=== PATIENT | female | born 1945 | race Caucasian/White ===

== ENCOUNTER → 2020-11-27 | Outpatient (CLI) | payer OTHER, MEDICARE ==
[~2020-11-27] MED LIST: ASA81BEC PO; CIMZIA400 MG/2 M SUBQ; FOLIC ACID1 MG PO; LEVOTHYROXINE150 MCG PO; LISINOPRIL-HCT1 EACH PO; METHOTREXATE 22.5 M1 PO; PROAIR HFA8.5 GM INH; TART CHERRY CA1 EACH PO; TRAMADOL 50 MG50 MG PO; VOLTAREN ARTHRI20 GM TOP
[2020-11-27 10:55] LABS: URINE BILIRUBIN NEGATIVE (Negative); URINE BLOOD NEGATIVE (Negative); URINE CLARITY CLEAR; URINE COLOR YELLOW; URINE GLUCOSE-RANDOM* NEGATIVE (Negative); URINE KETONES NEGATIVE (Negative); URINE NITRITE-REFLEX NEGATIVE (Negative); URINE PROTEIN (DIPSTICK) NEGATIVE (Negative); URINE UROBILINOGEN 0.2 E.U./dl (0.2-1.0)
[2020-11-27 10:57] LABS: HEMATOCRIT 32.3 % (37.0-47.0); HEMOGLOBIN 11.1 gm/dL (12.0-15.0); MCH 30.5 pg (26.0-34.0); MCHC 34.2 g/dL (28.0-37.0); MCV 89.2 fL (80.0-100.0); RBC 3.62 mil/uL (4.20-5.00); RDW 14.1 % (10.5-14.5); WBC 5.7 thou/uL (4.0-11.0)
[2020-11-27 10:59] LABS: URINE LEUKOCYTES-REFLEX 1+ (Negative)
[2020-11-27 11:10] LABS: CALCIUM 8.7 mg/dL (8.5-10.1); CREATININE 1.7 mg/dL (0.6-1.0); POTASSIUM 4.5 mmol/L (3.5-5.1)
[2020-11-27 11:12] LABS: INR 0.91
[2020-11-27 11:24] LABS: CASTS None Seen /LPF (None Seen); CRYSTALS None Seen /LPF (None Seen); SQUAMOUS 0-3 Few /LPF (0-3)
[2020-11-27 11:26] LABS: BACTERIA-REFLEX 1-9 Few /HPF (None Seen); RENAL EPITHELIAL CELLS 0-3 Few /LPF (None Seen); URINE RBC None Seen /HPF (NONE SEEN); URINE WBC-REFLEX 0-5 Rare /HPF (0-5)
--- NOTE | 2020-11-27 15:36 | EKG ---
[address] [address] ELECTROCARDIOGRAM REPORT Name: BOBBI VIDAL Room #: [facility]#: [id number] Admission: 11/27/20 Attend Phys: Mateus Bolden MD Discharge: Date of : 49 Report #: [id number] [facility] Test Date: 2020-11-27 Test Time: 10:49:27 Pat Name: BOBBI VIDAL Department: Room: Gender: F Payroll Benefits Clerk: TRE : 1945 Requested By: Mateus Bolden Order Number: [id number] : Deion Gandara Measurements Intervals [place] Rate: 70 P: 47 [place]: 145 QRS: -22 QRSD: 94 T: 13 QT: 399 QTc: 431 Interpretive Statements Sinus rhythm Borderline left axis deviation No previous ECG available for comparison Electronically Signed On 11-27-2020 15:36:44 CDT by Deion Gandara [email or web address] <ELECTRONICALLY SIGNED> By: Deion Gandara MD, [facility] 11/27/20 1536 1049 1049 Deion Gandara MD, FACC /EPI
== END ==
LOC: PAC 10:16
PROVIDERS: ATTEND Orthopaedic Surgery
DX: Z01.810 Encounter for preprocedural cardiovascular examination (principal); Z01.812 Encounter for preprocedural laboratory examination; M17.11 Unilateral primary osteoarthritis, right knee

== ENCOUNTER 2020-12-02 08:11 | Observation (INO) | payer OTHER, MEDICARE ==
[~2020-12-02] VITALS: Ht 152.4 cm; Wt 74.8 kg
--- NOTE | ~2020-12-02 | O ---
[facility] [place] [address] OPERATIVE REPORT Name: BOBBI VIDAL Room #: 441-P [facility] MKanwal#: [id number] Admission: 12/02/20 Attend Phys: Mateus Bolden MD Discharge: Date of : 49 Report #: [id number] THIS REPORT FOR: cc: Physician not on staff Physician not on staff Mateus Bolden MD ~ DOC #: [id number] Mateus Bolden MD DATE OF SERVICE: 12/02/2020 PREOPERATIVE DIAGNOSIS: Right knee osteoarthritis. POSTOPERATIVE DIAGNOSIS: Right knee osteoarthritis. PROCEDURE: Right total knee arthroplasty using Navio robotic assistance. SURGEON: Mateus Bolden MD. GERM DRIER: Sagrario Crespo PA-C. INDICATION FOR GERM DRIER: Throughout the case, extensive retraction and manipulation of the knee was required. This is supported by my hr assistant. ANESTHESIA: LMA with adductor canal block. IMPLANTS: A [employer] size 3 Journey II BCS cobalt chrome femur, a size 2 tibia, size 11 constrained polyethylene and size 29 patella. TOURNIQUET TIME: 48 minutes. ESTIMATED BLOOD LOSS: 25 mL COMPLICATIONS: None. SPECIMENS: None. CONDITION UPON LEAVING THE OR: Stable. INDICATIONS FOR PROCEDURE: The patient is a 75-year-old female with right knee osteoarthritis. She had failed conservative measures for this and after discussion with her, she elected for right total knee arthroplasty. DESCRIPTION OF PROCEDURE: Risks, benefits, alternatives, complications were discussed in detail with the patient including but not limited to risk of anesthesia, risk of damage to nerves, arteries, blood vessels, risk for infection, bleeding, risk for continued knee pain, need for reoperation. [facility] [address] [place] [address] OPERATIVE REPORT Name: BOBBI VIDAL Room #: 441-P [facility] Carlene Ortiz#: [id number] Admission: 12/02/20 Attend Phys: Mateus Bolden MD Discharge: Date of : 49 Report #: [id number] Informed consent was obtained from the patient. The right knee was appropriately marked in the preoperative holding area. IV Ancef was given for preoperative antibiotics. She was brought to the operating room and placed in supine position on the operating room table. LMA anesthesia was induced without complication. Tourniquet was placed on the right thigh. Right lower extremity was prepped and draped in normal sterile fashion. Timeout was performed properly identifying the patient and procedure as well as the instrumentation and implants. All in the operating room in agreement. Right lower extremity was exsanguinated, tourniquet was inflated. Tourniquet time was 48 minutes. Standard midline approach to knee was made with 10 blade through the skin. Dissection was taken down sharply to the fascia and deep flaps were developed medially and laterally. Fresh 10 blade was used to make a medial parapatellar arthrotomy and the knee was inspected. There were severe tricompartment osteoarthritis. ACL and PCL were removed sharply. Reference pins were placed in the femur and the tibia. The knee was then digitally mapped using the DoctorC robotic system. Intraoperative plan was made and we sized the size 3 femur, the size 2 tibia and a 10 spacer. After acceptance of the intraoperative plan, the distal femoral cut was made with Navio bur. Distal femoral cutting block was pinned in place and chamfer cuts were made. Attention was turned to the tibia. Remainder of the menisci removed with Bovie cautery. Tibial resection guide was pinned in place using Navio for placement and tibial resection was made. Flexion and extension gaps were checked and found to have good balance laterally in flexion and extension. She was tight medially and after removal of the medial tibial osteophyte, a limited medial release was performed using the pie crust technique. This balanced the knee well. Tibia sized, found to be a size 2. Size 2 tibial trial was placed, pinned and punched. Size 3 femoral trial was placed and the box cut was made. This was then trialed with a size 10 and then the size 11 polyethylene and 11 polyethylene demonstrated good balance medially throughout range of motion. She did have some laxity laterally and deep flexion. It was felt we can make up for this with a constrained implant, 9 mm of bone was resected from the posterior surface of the patella and a size 29 patellar trial button was placed, knee was taken through range of motion, found to be stable, found to have good patellar tracking. Trial components were removed. Bone ends were thoroughly irrigated with normal saline. Final size 2, tibia size 3 Journey II BCS cobalt chrome femur and a size 29 patella were cemented in place using standard cementation techniques. While the cement cured, a periarticular injection consisting of morphine, ropivacaine, epinephrine, Toradol was placed around the knee joint capsule. After the cement cured, the tourniquet was deflated. Hemostasis was obtained with Bovie cautery. A final size 11 constrained polyethylene was placed. A gram of vancomycin was placed deep in the joint. The fascia was closed with 0 Vicryl. Skin was closed with 2-0 Vicryl, skin staple and a ALYCIA dressing was applied. The patient tolerated this procedure well and went to recovery room under care of anesthesia postoperatively. [address] [address] OPERATIVE REPORT Name: BOBBI VIDAL Room #: 441-P [facility] Carlene Ortiz#: [id number] Admission: 12/02/20 Attend Phys: Mateus Bolden MD Discharge: Date of : 49 Report #: [id number] Mateus Bolden MD SMA/BRIAN By: [id number] [id number] Mateus Bolden MD /nt
[2020-12-02 13:39] VITALS: BP 129/58
[2020-12-02 16:38] VITALS: BP 139/66
[2020-12-02 19:58] VITALS: BP 118/62
--- NOTE | 2020-12-03 03:01 | NUR ---
ASSUMED CARE OF PT AT 1900. PT IS A/O X4 AND IS UP WITH ASSISTANCE USING WALKER AND GB TO THE BR. PLEASANT AND COOPERATIVE WITH CARES. VSS AFEBRILE. C/O PAIN TO RIGHT KNEE. PRN PAIN MEDICATION GIVEN DIRECTED. DRSG IS C/D/I. POLAR PACK ICE CHANGED AND IN PLACE. SCD'S, KNEE HIGH JOANNA HOSE AND FALL PRECAUTIONS IN PLACE, CALL LIGHT IS WITHIN REACH. PT HAS CALLED OUT APPROPRIATELY FOR ASSISTANCE.
[2020-12-03 08:15] VITALS: BP 112/62
--- NOTE | 2020-12-03 09:31 | NUR ---
ASSUMED PT CARE THIS AM. PT IS ALERT & ORIENTED X4. PT HAS IV SITE ON R FA. PT IS UP WITH ASSIST X 1 WITH GAITBELT AND WALKER. PT HAS ALYCIA DESSING, KNEE HIGH JOANNA HOSES BILATERAL, POLAR PACK. PT IS ON ROOM AIR. PT HAD SURGERY YESTERDAY. PT WAS WORKING WITH PHYSICAL THERAPY THIS AM AND DID WELL. NO C/O NAUSEA AND VOMITING NOTED. PT TOLERATED DIET AND MEDICATION WELL THIS AM. PT ON THE BED, BED ON THE LOWEST POSITION, SIDE RAILS UP, CALL LIGHT WITHIN REACH. WILL CONTINUE TO MONITOR PT. FOLLOW POC.
[2020-12-03 10:21] VITALS: BP 112/62
[2020-12-03 13:50] VITALS: BP 112/62
--- NOTE | 2020-12-03 14:07 | NUR ---
ASSESMENT: CM REVIEWED CHART AND MET WITH PATIENT. PT IS ALERT AND ORIENTED X4. PT IS S/P CERVIAL FUSION. 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 PT REPORTS THAT SHE NORMALLY IS FULLY INDEPENDENT WITH ADLS AND AMBULATION. PT REPORTS AT HER SONS HOME THERE IS ABOUT 5 STEPS WITH HANDRAIL TO ENTER AND STEPS SHE WILL HAVE TO USE ONCE INSIDE. PT REPORTS SHE HAD HH ABOUT 18 YEARS AGO BUT NOT SINCE. PT REPORTS NEVER GOING TO A POST ACUTE CARE STAY. CM DISCUSSED ROLE. CM WILL CONTINUE TO FOLLOW TO ASSIST NEEDED. PT WORKED WITH THERAPY AND MAY BENEFIT FROM WALKER AT HOME, CM WILL FOLLOW UP HOW SHE DOES WITH THERAPY IN AM.
== END 2020-12-03 13:03 | disposition home or self-care (01) ==
LOC: OR → TBA 08:12 → OR 10:32 → 4S 15:35 → OR 15:35 → 4S 12-03 13:03
PROVIDERS: ADMIT Orthopaedic Surgery; ATTEND Orthopaedic Surgery
DX: M16.12 Unilateral primary osteoarthritis, left hip (principal); E78.5 Hyperlipidemia, unspecified; Z79.899 Other long term (current) drug therapy
CPT/HCPCS: 50010; 50101; 50415; 50954; 51130; 51225; 51320; 51412; 52001; 52282; 53000; 53078; 56527; 56528; 57095; 57103; 57110; 57127; 58239; 62110; 62900; 70005